=== PATIENT | male | born 1995 | race Caucasian/White ===

== ENCOUNTER 2016-09-08 17:04 | Emergency (ER) | payer OTHER ==
--- NOTE | ~2016-09-08 | CR126 ---
[facility] A Service of [facility] & [facility] RADIOLOGY TEXT RESULTS PATIENT: DIRK NOLEN LOCATION: SED : [birth year] UNIT #: [id number] AGE: [address]: Radha Hadley APRN SEX: M ORDER DR: [id number] [address] [address] [id number] E MR#: [id number] Acc #: [id number] NAME: DIRK NOLEN : 1995 SEX: M STUDY DATE/TIME: 09/08/2016 17:11 UNIT: SED ROOM: STUDY DESCRIPTION: CR Foot Complete Min 3 View Lt Attending Physician: Radha Hadley A.P.R.N. Ordering Physician: Radha England A.P.R.N. Primary Care Physician: Primary Care Physician No MEDICAL IMAGING REPORT This report is preliminary unless electronic signature is present. EXAM Left foot series, 09/08/2016 HISTORY Rolled foot playing basketball. Happened today 30 minutes prior to arrival, lateral and top of foot pain. FINDINGS AP lateral and oblique radiographs of the left foot show normal bony mineralization. No traumatic fracture or malalignment. 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 Other joint spaces unremarkable. Os trigonum along the posterior aspect of the talus. No soft tissue defect, subcutaneous air or radiodense foreign body. Dictated by... Carlos Allred M.D. THIS IS AN ELECTRONICALLY VERIFIED REPORT Carlos Allred M.D. at 09/09/2016 2:17 PM Radha TD: 09/09/2016 08:25 JOB #: [id number] MEDICAL IMAGING REPORT Page 1 of 1
--- NOTE | ~2016-09-08 | CR169 ---
[facility]. [facility] A Service of [facility] & [facility] RADIOLOGY TEXT RESULTS PATIENT: DIRK NOLEN LOCATION: SED : 93 UNIT #: [id number] AGE: [address]: Radha Hadley APRN SEX: M ORDER DR: [id number] [address] [address] [id number] E MR#: [id number] Acc #: [id number] NAME: DIRK NOLEN : 1995 SEX: M STUDY DATE/TIME: 09/08/2016 17:11 UNIT: SED ROOM: STUDY DESCRIPTION: CR Knee 2 Views Lt Attending Physician: Radha Hadley A.P.R.N. Ordering Physician: Radha England A.P.R.N. Primary Care Physician: Primary Care Physician No MEDICAL IMAGING REPORT This report is preliminary unless electronic signature is present. EXAM Left knee 2 views HISTORY Injured knee 30 minutes prior to admission playing basketball. Knee pain. FINDINGS 2 views are submitted. Bony elements are intact and in normal alignment. No fractures or joint effusion. CONCLUSION Negative. Dictated by... Carlos Miramontes M.D. THIS IS AN ELECTRONICALLY VERIFIED REPORT Carlos Miramontes M.D. at 09/10/2016 3:10 PM Junior TD: 09/09/2016 08:55 JOB #: [id number] MEDICAL IMAGING REPORT Page 1 of 1
[~2016-09-08 17:04] MED LIST: COLACE PO; FLEXERIL10 MG PO; NAPROSYN500 MG PO; NO MEDICATIONS; OTC ACID REFLUX MED; PHENERGAN25 M1 PO; PROTONIX PO; ZOFRAN ODT4 MG PO; ZOFRAN ODT4 MG/UDTAB PO
== END 2016-09-08 18:13 | disposition home or self-care (01) ==
LOC: SED 17:04
DX: S83.92XA Sprain of unspecified site of left knee, initial encounter (principal); S93.602A Unspecified sprain of left foot, initial encounter; X50.1XXA Overexertion from prolonged static or awkward postures, initial encounter; Y93.67 Activity, basketball; Y92.009 Unspecified place in unspecified non-institutional (private) residence as the place of occurrence of the external cause
CPT/HCPCS: 29530; 29540; 73560; 73630; 99284

== ENCOUNTER 2016-12-09 22:01 | Emergency (ER) | payer OTHER ==
[2016-12-09] MEDS ORDERED: NO MEDICATIONS (22:12)
== END 2016-12-09 22:36 | disposition home or self-care (01) ==
LOC: SED 22:01
DX: T22.012A Burn of unspecified degree of left forearm, initial encounter (principal); X08.8XXA Exposure to other specified smoke, fire and flames, initial encounter; Y92.9 Unspecified place or not applicable
CPT/HCPCS: 99283